=== PATIENT | male | born 1975 | race Caucasian/White ===

== ENCOUNTER 2016-03-05 10:47 | Emergency (ER) | payer OTHER ==
[2016-03-05 10:55] VITALS: TEMP 97.9; BMI 32.1
[2016-03-05] MEDS ORDERED: ONDANSETRON 4 MG/2 ML VIAL IVPB ONE (12:09)
[2016-03-05] MEDS ORDERED: FAMOTIDINE 20 MG/50 ML IVPB 50 ML IVPB ONE ×3 (12:09→13:22)
[2016-03-05] MEDS ORDERED: SODIUM CHLORIDE 1,000 ML IV STA (12:09)
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
[2016-03-05] MEDS ORDERED: ONDANSETRON 4 MG/2 ML VIAL ONE (13:07)
[2016-03-05 13:26] LABS: BASOPHIL 0.6 % (0-2.0); EOSINOPHIL 3.2 % (0-4.5); MCH 28.9 pg (25.7-33.7); MCHC 33.7 g/dl (32.0-35.9); MEAN CELL VOLUME 85.9 fl (80-96); MEAN PLT VOLUME 8.2 fl (7.5-11.1); NEUTROPHILS 65.5 % (42.8-82.8); PLATELET COUNT 246 K/MM3 (134-434); RDW 13.7 % (11.9-15.9); URINE APPEARANCE CLEAR; URINE BILIRUBIN NEGATIVE (NEGATIVE); URINE BLOOD NEGATIVE (NEGATIVE); URINE COLOR YELLOW; URINE GLUCOSE (UA) NEGATIVE (NEGATIVE); URINE KETONE NEGATIVE (NEGATIVE); URINE LEUK ESTERASE NEGATIVE (NEGATIVE); URINE NITRITE NEGATIVE (NEGATIVE); URINE PROTEIN NEGATIVE (NEGATIVE); URINE UROBILINOGEN NEGATIVE E.U./dl (0.2-1.0); WHITE BLOOD COUNT 6.7 K/mm3 (4.0-10.0)
[2016-03-05 14:29] LABS: ALBUMIN 3.6 g/dl (3.4-5.0); ALK PHOS 78 U/L (45-117); ANION GAP 7 (8-16); BILIRUBIN,TOTAL 0.7 mg/dL (0.2-1.0); CALCIUM 8.6 mg/dL (8.5-10.1); CO2 31 mmol/L (21-32); CREATININE 0.9 mg/dL (0.7-1.3); GLUCOSE,RANDOM 84 mg/dL (74-106); SGOT/AST 16 U/L (15-37); SGPT/ALT 27 U/L (12-78); TOT PROT 6.8 g/dl (6.4-8.2)
[2016-03-05 15:59] VITALS: BP 122/72; PULSE 78
--- NOTE | 2016-03-06 23:33 | EKG ---
Test Reason : Blood Pressure : / mmHG Vent. Rate : 056 BPM Atrial Rate : 056 BPM P-R Int : 120 ms QRS Dur : 084 ms QT Int : 406 ms P-R-T Axes : 064 033 021 degrees QTc Int : 391 ms SINUS BRADYCARDIA OTHERWISE NORMAL ECG NO PREVIOUS ECGS AVAILABLE Confirmed by HASEEB SCHULTZ MD ([id number]) on 03/06/2016 11:33:03 PM Referred By: Confirmed By:HASEEB SCHULTZ MD
== END 2016-03-05 16:44 | disposition home or self-care (01) ==
LOC: JER 10:47
PROC: 3E033GC Introduction of Other Therapeutic Substance into Peripheral Vein, Percutaneous Approach (ICD-10-PCS; principal; 2016-03-05)
DX: R10.12 Left upper quadrant pain (principal); Z87.19 Personal history of other diseases of the digestive system
CPT/HCPCS: 36415; 80053; 81003; 83690; 85025; 93005; 93010; 96365; 96375; 99283-25